=== PATIENT | male | born 1995 | race Caucasian/White ===

== ENCOUNTER 2022-10-20 19:15 | Emergency (ER) | payer OTHER, SELFPAY ==
--- NOTE | 2022-10-20 19:24 | ED.GENADULT ---
HPI - General Adult General Time Seen by Provider: 19:24 Date Seen: 10/20/22 Chief complaint: Abdominal Pain Stated complaint: Chest and abdominal pain Time Seen by Provider: 10/20/22 19:24 Source: patient, EMS, RN notes reviewed and old records reviewed Mode of arrival: ambulatory Limitations: no limitations History of Present Illness HPI narrative: 26-year-old male who presents today with abdominal pain. Patient reports abdominal pain since yesterday, epigastric and right upper quadrant. Nausea with no vomiting. Reports some loose stools. Says he took some oxycodone from prior surgery at home, denies cough, chest pain, fever, shortness of breath. No urinary symptoms. 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 Patient re-presented to outside emergency department early yesterday morning with pain, at that time normal lipase, normal hepatic panel, minimally elevated CRP at 6, normal white blood cell count. CT scan was performed which did not demonstrate any acute intra-abdominal findings and patient was discharged Related Data Home Medications Medication Instructions Recorded Confirmed omeprazole 40 mg capsule,delayed 40 mg PO BID 10/20/22 10/20/22 release Previous Rx's Medication Instructions Recorded dicyclomine 10 mg capsule 10 mg PO QID PRN abdominal pain 10/20/22 #20 caps Allergies Allergy/AdvReac Type Severity Reaction Status Date / Time No Known Drug Allergies Allergy Verified 10/20/22 21:21 [facility] Surgical History (Updated 10/20/22 @ 19:47 by Jim Suarez RN) Status post orchiopexy ?Z98.890 - Other specified postprocedural states (ICD-10) History of orchiectomy ?Z90.79 - Acquired absence of other genital organ(s) (ICD-10) Social History Smoking Status: Never smoker Do you use any of these nicotine containing products: None How often do you have a drink containing alcohol: never AUDIT-C Alcohol total score: 0 Non-prescribed substance use: denies use Exam Narrative: Exam Narrative: General: Well-developed and well-nourished, no acute distress Head: Atraumatic and normocephalic Eyes: Pupils are equal reactive, extraocular motions intact, conjunctiva clear ENT: External nose and ears are normal, posterior pharynx without erythema or exudate Neck: No midline cervical tenderness, full spontaneous range of motion the neck, trachea midline, no adenopathy Heart: Regular rate and rhythm no murmurs or thrills Lungs: Clear to auscultation bilaterally without wheezes or crackles Abdomen: Mild right upper quadrant and epigastric tenderness Musculoskeletal: No tenderness, deformity, or edema Neurologic: Awake, alert, and oriented x3, no gross focal neurologic deficits, cranial nerves intact as tested Psych: Mood and affect are appropriate Skin: No rashes, diaphoretic Const: Vital Signs, click to edit/add: Vital Signs - 24 hr 10/20/22 19:29 Temperature 98.0 F Pulse Rate [Right Pulse Oximeter] 78 Respiratory Rate 18 Blood Pressure [Ri ght Upper Arm] 165/89 H Pulse Oximetry 99 Oxygen Delivery Me thod Room Air Course Course Hospital Course: Patient seen and examined, prior records reviewed. Differential diagnosis includes but not limited to gastritis, gastric ulcer, colitis, pancreatitis, acute cholecystitis, diverticulitis, appendicitis, urinary tract infection, bowel obstruction, perforation, kidney stone. Patient presents with epigastric and right upper quadrant abdominal pain started yesterday, prior negative evaluation yesterday morning and outside department. Here, mild right upper quadrant epigastric tenderness, no rebound, no right lower quadrant tenderness. Vital is stable. Labs, fluids, medications are ordered. Reevaluation(s) Time of Reevaluation #1: 21:01 Reevaluation #1: Labs independently interpreted by me with leukocytosis which is new from prior evaluation yesterday, otherwise basic panel, hepatic panel, lipase are normal. Given elevation white blood cell count as well as worsening symptoms, repeat CT study will be done. Time of Reevaluation #2: 22:13 Reevaluation #2: CT scan independently interpreted by me negative for acute findings. Urine drug screen positive for oxycodone which patient says he took at home common otherwise negative. Pain is improved after Zofran and Bentyl. Patient is stablefor discharge with outpatient follow-up with primary care. Vital Signs Vital signs: Initial Vital Signs Temperature 98.0 F 10/20/22 19:29 Temperature Source Temporal Artery Scan 10/20/22 19:29 Pulse Rate 78 10/20/22 19:29 Respiratory Rate 18 10/20/22 19:29 Blood Pressure 165/89 H 10/20/22 19:29 Blood Pressure Mean 114 H 10/20/22 19:29 Blood Pressure Position Sitting 10/20/22 19:29 Pulse Oximetry 99 10/20/22 19:29 Oxygen Delivery Method Room Air 10/20/22 19:29 Vital Signs Temperature 98.0 F 10/20/22 19:29 Pulse Rate 78 10/20/22 19:29 Respiratory Rate 18 10/20/22 19:29 Blood Pressure 165/89 H 10/20/22 19:29 Pulse Oximetry 99 10/20/22 19:29 Oxygen Delivery Method Room Air 10/20/22 19:29 Temperature 98.0 F 10/20/22 19:29 Pulse Rate 78 10/20/22 19:29 Respiratory Rate 18 10/20/22 19:29 Blood Pressure 165/89 H 10/20/22 19:29 Pulse Oximetry 99 10/20/22 19:29 Oxygen Delivery Method Room Air 10/20/22 19:29 Medical Decision Making Lab Data Labs: Lab Results 10/20/22 10/20/22 Range/Units 20:00 20:43 WBC 12.46 H (4.50-11.00) K/uL RBC 5.41 (4.30-5.90) m/uL Hgb 13.7 (13.5-17.5) gm/dL Hct 43.4 (37.0-53.0) % MCV 80 (80-100) fL MCH 25 L (26-34) pg MCHC 32 (32-36) gm/dL RDW Coeff of Mary 14.5 (11.5-15.5) % Plt Count 266 (140-440) K/uL Neut % (Auto) 80.3 H (42.0-72.0) % Lymph % (Auto) 14.1 L (20-44) % Pender % (Auto) 5.1 (0.0-11.0) % Eos % (Auto) 0.1 (0.0-7.0) % Baso % (Auto) 0.3 (0.0-3.0) % Neut # (Auto) 10.00 H (1.7-7.0) K/uL Lymph # (Auto) 1.80 (0.90-2.90) K/uL Pender # (Auto) 0.60 (0.00-0.90) K/UL Eos # (Auto) 0.00 (0.00-0.50) K/uL Baso # (Auto) 0.00 (0.00-0.30) K/uL Abs Immat Gran (auto) 0.00 (0.00-0.30) K/uL Imm/Tot Granulo (auto) 0.1 % Sodium 138 (135-149) mmol/L Potassium 4.3 (3.6-5.1) mmol/L Chloride 104 (96-114) mmol/L Carbon Dioxide 27 (20-32) mmol/L BUN 9 (5-24) mg/dL Creatinine 0.7 (0.5-1.5) mg/dL Estimated Creat Clear 183.90 Estimated GFR 132 ml/min Glucose 141 H (60-115) mg/dL Lactate 1.1 (0.5-1.9) mmol/L Calcium 9.1 (8.4-10.6) mg/dL Magnesium 2.1 (1.5-2.6) mg/dL Total Bilirubin 0.6 (0.1-1.5) mg/dL Direct Bilirubin 0.2 (0.0-0.5) mg/dL AST 35 (12-35) U/L ALT 22 (4-50) U/L Alkaline Phosphatase 69 (40-150) U/L Total Protein 7.9 (6.0-8.3) g/dL Albumin 4.4 (3.3-5.0) g/dL Lipase 52 (23-300) U/L Urine Color Yellow (Yellow) Urine Appearance Clear (Clear) Urine pH 6.0 (5.0-8.5) Ur Specific [place] 1.025 (1.000-1.030) Urine Protein Negative (Negative) Urine Glucose (UA) Negative (Negative) Urine Ketones Negative (Negative) Urine Blood Negative (Negative) Urine Nitrite Negative (Negative) Urine Bilirubin Negative (Negative) Urine Urobilinogen 0.2 (0.2-1.0) Ur Leukocyte Esterase Negative (Negative) Urine RBC 0-2 (0-2) Urine WBC 0-2 (0-5) Ur Squamous Epith Cells None (None-Few) Urine Bacteria None (None) Urine Opiates Screen POSITIVE A (Negative) Ur Oxycodone Screen POSITIVE A (Negative) Urine Methadone Screen Negative (Negative) Ur Propoxyphene Screen Negative (Negative) Ur Barbiturates Screen Negative (Negative) U Tricyclic Antidepress Negative (Negative) Ur Phencyclidine Scrn Negative (Negative) Ur Amphetamines Screen Negative (Negative) U Methamphetamines Scrn Negative (Negative) U Benzodiazepines Scrn Negative (Negative) Urine Cocaine Screen Negative (Negative) U Marijuana (THC) Screen Negative (Negative) Ur Drug Screen Comment See Note Discharge Plan Discharge Clinical Impression: Acute epigastric pain Patient Disposition: Home, Self-Care Condition: Stable Instructions: Acute Abdominal Pain (DC) Activity Level: Activity as Tolerated Discharge Diet: Full Liquid Prescriptions: New dicyclomine 10 mg capsule 10 mg PO QID PRN (Reason: abdominal pain) Qty: 20 0RF No Action omeprazole 40 mg capsule,delayed release(DR/EC) 40 mg PO BID Follow Up/Referrals: Austin Maher MD [Primary Care Provider] - Stand Alone Forms: FUJIAN HAIYUAN Info Instructions
[2022-10-20 19:29] VITALS: BP 165/89; PULSE 78; RESP 18; TEMP 36.7; O2SAT 99; BMI 29.0
[2022-10-20] MEDS: 0.9 % SODIUM CHLORIDE 1000 ml 1,000 ML IV (19:59)
[2022-10-20] MEDS: ONDANSETRON 2 MG/ML inj 4 MG IVP (19:59)
[2022-10-20 20:03] LABS: Lactate* 1.1 mmol/L (0.5-1.9)
[2022-10-20 20:04] LABS: Basophils Percent Auto 0.3 % (0.0-3.0); Eosinophils Percent Auto 0.1 % (0.0-7.0); Hematocrit 43.4 % (37.0-53.0); Hemoglobin* 13.7 gm/dL (13.5-17.5); Immature Granulocytes Pct Auto 0.1 %; Lymphocytes Percent Auto 14.1 % (20-44); Mean Corpuscular HGB Conc 32 gm/dL (32-36); Mean Corpuscular Hemoglobin 25 pg (26-34); Mean Corpuscular Volume 80 fL (80-100); Monocytes Percent Auto 5.1 % (0.0-11.0); Neutrophils Percent Auto 80.3 % (42.0-72.0); Platelet Count* 266 K/uL (140-440); RDW Coefficient of Variation % 14.5 % (11.5-15.5); Red Blood Count 5.41 m/uL (4.30-5.90); White Blood Count* 12.46 K/uL (4.50-11.00)
[2022-10-20 20:08] LABS: Slide Review Reflex No
[2022-10-20] MEDS: DICYCLOMINE HCL 10 MG CAPSULE PO (20:23)
[2022-10-20 20:33] LABS: Albumin* 4.4 g/dL (3.3-5.0)
[2022-10-20 20:34] LABS: Chloride* 104 mmol/L (96-114); Sodium* 138 mmol/L (135-149)
[2022-10-20 20:35] LABS: Potassium* 4.3 mmol/L (3.6-5.1)
[2022-10-20 20:36] LABS: Alkaline Phosphatase* 69 U/L (40-150); Aspartate Amino Transferase* 35 U/L (12-35); Bilirubin Direct* 0.2 mg/dL (0.0-0.5); Bilirubin Total* 0.6 mg/dL (0.1-1.5); Magnesium* 2.1 mg/dL (1.5-2.6); Total Protein* 7.9 g/dL (6.0-8.3)
[2022-10-20 20:37] LABS: Alanine Aminotransferase* 22 U/L (4-50); Carbon Dioxide* 27 mmol/L (20-32); Creatinine* 0.7 mg/dL (0.5-1.5); Estimated Glomerular Filt Rate 132 ml/min; Lipase* 52 U/L (23-300)
[2022-10-20 20:38] LABS: Blood Urea Nitrogen* 9 mg/dL (5-24); Calcium* 9.1 mg/dL (8.4-10.6); Glucose* 141 mg/dL (60-115)
[2022-10-20 20:56] LABS: Appearance Urine Clear (Clear); Bilirubin Urine Negative (Negative); Blood Urine Negative (Negative); Color Urine Yellow (Yellow); Glucose Urine Negative (Negative); Ketones Urine Negative (Negative); Leukocyte Esterase Urine Negative (Negative); Nitrite Urine Negative (Negative); Protein Urine Negative (Negative); Specific Gravity Urine 1.025 (1.000-1.030); Urobilinogen Urine 0.2 (0.2-1.0)
--- NOTE | 2022-10-20 21:02 | CRLHL7_ITS ---
For Patients: As a result of the Century Cures Act, medical imaging exams and procedure reports are released immediately into your electronic medical record. You may view this report before your referring provider. If you have questions, please contact your health care provider. INDICATION: Epigastric abdominal pain, leukocytosis TECHNIQUE: CT Abdomen and pelvis with i.v. contrast. Coronal and sagittal reformats were obtained. CONTRAST: 100 mL Isovue 370 COMPARISON: 07/25/2013 FINDINGS: Lower chest: Unremarkable. Liver: Unremarkable. Spleen: Unremarkable. Pancreas: Unremarkable. Gallbladder: Previous cholecystectomy noted with no significant intra- or extrahepatic biliary ductal dilatation seen. Kidney: Unremarkable. No kidney or ureteral stones or obstruction seen. Adrenal: Unremarkable. Bowel: There is a small metallic density in the 2nd portion of the duodenum which may represent a surgical clip. The appendix is normal in appearance and size. Vascular: Unremarkable. Lymph: Unremarkable. Peritoneum: Unremarkable. No pneumoperitoneum is seen. No significant ascites is noted. Pelvis: Unremarkable. Soft tissue: Unremarkable. Bone: Unremarkable for age. IMPRESSION: 1. No CT correlate for the patient`s symptoms seen. Dictated by Matt Monroe MD @ 10/20/2022 9:32:17 PM Please note that all CT scans at this facility use dose modulation, iterative reconstruction, and/or weight-based dosing when appropriate to reduce radiation dose to as low as reasonably achievable. Dictated by: Matt Monroe MD @ 10/20/2022 21:32:20 (Electronically Signed)
[2022-10-20 21:06] LABS: Amphetamine Screen Urine Negative (Negative); Barbiturate Screen Urine Negative (Negative); Benzodiazepines Screen Urine Negative (Negative); Cannabinoid Screen Urine Negative (Negative); Cocaine Screen Urine Negative (Negative); Methadone Screen Urine Negative (Negative); Methamphetamines Screen Urine Negative (Negative); Opiate Screen Urine POSITIVE (Negative); Oxycodone Screen Urine POSITIVE (Negative); Phencyclidine Screen Urine Negative (Negative); Tricyclic Antidepressant Urine Negative (Negative)
[2022-10-20 21:22] LABS: RBC Urine 0-2 (0-2); WBC Urine 0-2 (0-5)
[2022-10-20 22:25] VITALS: BP 160/70; PULSE 78; RESP 18; TEMP 36.8; O2SAT 99
--- NOTE | 2022-10-20 22:26 | PC.NURSE ---
patient DC accompanied by parents no further questions or concerns. stated understanding to DC instructions
== END 2022-10-20 22:25 | disposition home or self-care (01) ==
PROVIDERS: Emergency Provider Family Medicine; PCP Family Medicine
DX: R10.13 Epigastric pain (principal)
CPT/HCPCS: 36415; 74177; 80048; 80076; 80306; 81001; 83605; 83690; 83735; 85025; 96374; 99283; 99284; A9270; J2405; J7030; Q9967